=== PATIENT | male | born 1995 | race Caucasian/White ===

== ENCOUNTER 2018-05-05 06:48 | Observation (INO) | payer MEDICAID ==
[2018-05-05 07:19] LABS: ADD MAN DIFF? NO
[2018-05-05 07:21] LABS: WHITE BLOOD COUNT 15.7 10^3/ul (4.8-10.8)
[2018-05-05 07:21] LABS: BASOPHILS % 0.3 % (0.0-2.0); EOSINOPHILS % 0.1 % (0.0-7.0); HEMATOCRIT 46.3 % (42.0-52.0); HEMOGLOBIN 16.2 g/dl (14.0-18.0); LYMPHOCYTES # 1.5 10^3/ul (0.8-2.9); LYMPHOCYTES % 9.8 % (15.0-51.0); MEAN CORPUSCULAR HEMOGLOBIN 30.4 pg (29.0-33.0); MEAN CORPUSCULAR VOLUME 86.9 fl (82.0-101.0); MEAN PLATELET VOLUME 9.5 fl (7.4-10.4); MONOCYTES % 6.2 % (0.0-11.0); NEUTROPHILS % 82.8 % (39.0-77.0); PLATELET COUNT 295 10^3/UL (140-415); RED BLOOD COUNT 5.33 10^6/ul (4.70-6.10); RED CELL DISTRIBUTION WIDTH 11.9 % (11.5-14.5)
[2018-05-05] MEDS: SOD CHLORIDE 0.9% 1,000 ML IV ×2 (07:21→08:48)
[2018-05-05] MEDS: FAMOTIDINE 20 MG INJ IV ×2 (07:25→08:41)
[2018-05-05] MEDS: ONDANSETRON 4 MG INJ IV (07:25)
[2018-05-05 07:37] LABS: ALANINE AMINOTRANSFERASE 17 IU/L (13-69); ALBUMIN 4.5 g/dl (3.3-4.9); ALBUMIN/GLOBULIN RATIO 1.09; ALKALINE PHOSPHATASE 151 IU/L (42-121); ANION GAP 10 (5-13); ASPARTATE AMINO TRANSFERASE 28 IU/L (15-46); BLOOD UREA NITROGEN 11 mg/dl (7-20); CALCIUM 9.4 mg/dl (8.4-10.2); CARBON DIOXIDE 27 mmol/L (21-31); CHLORIDE 107 mmol/L (97-110); Estimated GFR > 60 mL/min (>60); GLUCOSE 146 mg/dl (70-220); POTASSIUM 3.9 mmol/L (3.5-5.1); SODIUM 144 mmol/L (135-144); TOTAL PROTEIN 8.6 g/dl (6.1-8.1)
[2018-05-05 07:39] LABS: ACETAMINOPHEN < 10.0 ug/ml (10.0-30.0)
[2018-05-05 07:40] LABS: ETHANOL < 10.0 mg/dl (0-0); INR 0.96; PARTIAL THROMBOPLASTIN TIME 26.6 Sec (23.0-35.0); PROTIME 12.9 Sec (11.9-14.9)
[2018-05-05 07:47] LABS: SALICYLATE 45.1 mg/dl (5.0-30.0)
[2018-05-05] MEDS: NA BICARBONATE 8.4% 50 ML SYG IV (08:41)
[2018-05-05 08:46] LABS: ADD UMIC NO; UR ASCORBIC ACID NEGATIVE (NEGATIVE); UR BILIRUBIN (Dip) NEGATIVE (NEGATIVE); UR BLOOD (Dip) NEGATIVE (NEGATIVE); UR CLARITY CLEAR (CLEAR); UR COLOR STRAW (YELLOW); UR GLUCOSE (Dip) NEGATIVE (NEGATIVE); UR KETONES (Dip) NEGATIVE (NEGATIVE); UR LEUKOCYTE ESTERASE (Dip) NEGATIVE Leu/ul (NEGATIVE); UR NITRITE (Dip) NEGATIVE (NEGATIVE); UR TOTAL PROTEIN (Dip) NEGATIVE (NEGATIVE); UR UROBILINOGEN (Dip) NEGATIVE (NEGATIVE)
[2018-05-05 08:54] LABS: AADO2 Arterial 8.8 mmHg (7.0-24.0); Allen Test ACCEPTAB; Arterial Base Excess 3.2 mmol/L (-3.0-3); Arterial Blood Gas Oxygen Sat 97.7 mmHG (95.0-98.0); Arterial COHb 0.1 % (0.0-3.0); Arterial Fraction of Oxyhgb 97.4 % (93.0-99.0); Arterial HCO3 25.4 mmol/L (22.0-26.0); Arterial MetHb 0.2 % (0.0-1.5); Arterial pCO2 32.3 mmhg (35-45); MODE ROOM AIR; Site Right Radial
[2018-05-05 09:06] LABS: AMPHETAMINE/METHAMPHETAMINE Negative (NEGATIVE); BARBITURATES Negative (NEGATIVE); BENZODIAZEPINES Negative (NEGATIVE); CANNABINOIDS Negative (NEGATIVE); COCAINE Negative (NEGATIVE); OPIATES Negative (NEGATIVE)
[2018-05-05] MEDS ORDERED: ACETAMINOPHEN 325 MG TAB PO (09:30)
[2018-05-05] MEDS ORDERED: ONDANSETRON 4 MG INJ IV ×2 (09:30→14:00)
[2018-05-05] MEDS: SODIUM BICARBONATE (IV ADD) 50 MEQ in DEXTROSE 5% 1,000 ML IV (09:31)
[2018-05-05 09:44] LABS: LACTIC ACID 0.8 mmol/L (0.5-2.0)
[2018-05-05] MEDS ORDERED: NACL 0.9% 3 ML SYG IV (14:00)
[2018-05-05] MEDS ORDERED: FAMOTIDINE 20 MG TAB PO (21:00)
== END 2018-05-05 14:07 | disposition left against medical advice (07) ==
LOC: E/R 06:48 → PP2 09:30
DX: T39.011A Poisoning by aspirin, accidental (unintentional), initial encounter (principal); R42 Dizziness and giddiness; R53.1 Weakness; Y92.89 Other specified places as the place of occurrence of the external cause
CPT/HCPCS: 36600; 71045; 80053; 80307; 81003; 82803; 83605; 85025; 85610; 85730; 93005; 96374; 96375; 99291-25; G0378